=== PATIENT | male | born 1945 | race Caucasian/White ===

== ENCOUNTER → 2017-03-02 | Outpatient (CLI) | payer BC ==
[~2017-03-02] MED LIST: ASPI-496 PO; ATOR40TA78 PO; CARV12.543 PO; FENTANYL PF 100 MCG/2ML ONE; FURO40TA6 PO; IRBE300T16 PO; METF500T4 PO; MIDAZOLAM 1 MG/ML, 5ML ONE; POTA2VIA5 PO; TAMS0.4C2 PO
== END | disposition home or self-care (01) ==
LOC: RAD 06:55
PROVIDERS: ATTEND Family Medicine
DX: Z02.9 Encounter for administrative examinations, unspecified (principal)
CPT/HCPCS: J2250; J3010

== ENCOUNTER 2017-04-09 17:33 | Emergency (ER) | payer BC, MEDICARE ==
[~2017-04-09] VITALS: Ht 182.9 cm; Wt 190.9 kg
[~2017-04-09 17:33] MED LIST changes: -FENTANYL PF 100 MCG/2ML ONE; -MIDAZOLAM 1 MG/ML, 5ML ONE
[2017-04-09] MEDS ORDERED: SODIUM CHLORIDE FLUSH 10ML SYR IVF ONE (18:00)
[2017-04-09 18:24] LABS: BLOOD UREA NITROGEN 20 mg/dL (7-18)
[2017-04-09 20:27] VITALS: BP 100/52
== END 2017-04-09 20:30 | disposition home or self-care (01) ==
LOC: ED 18:08
DX: I95.2 Hypotension due to drugs (principal); R55 Syncope and collapse; I25.2 Old myocardial infarction; E66.9 Obesity, unspecified; E11.9 Type 2 diabetes mellitus without complications; E78.5 Hyperlipidemia, unspecified; I11.9 Hypertensive heart disease without heart failure; Z90.49 Acquired absence of other specified parts of digestive tract
CPT/HCPCS: 36415; 71010; 80048; 82040; 85025; 93005

== ENCOUNTER → 2020-03-24 | Outpatient (CLI) | payer BC ==
[~2020-03-24] MED LIST changes: -IRBE300T16 PO; +IRBE300T8 PO; +METF500T17 PO; -METF500T4 PO
== END | disposition home or self-care (01) ==
LOC: RAD 13:21
PROVIDERS: ATTEND Physician Assistant
DX: M79.605 Pain in left leg (principal)

== ENCOUNTER 2020-09-24 16:54 | Inpatient (IN) | payer MEDICARE, BC ==
[~2020-09-24] VITALS: Ht 182.9 cm; Wt 206.5 kg
[2020-09-24] MEDS ORDERED: FUROSEMIDE 40 MG/4 ML IV ONE (18:00)
[2020-09-24] MEDS ORDERED: SODIUM CHLORIDE FLUSH 10ML SYR IVF ONE (18:00)
[2020-09-24] MEDS ORDERED: FUROSEMIDE 20 MG/2 ML ONE (18:09)
[2020-09-24 18:37] LABS: BASOPHILS % (AUTO) 1 % (0-1); EOSINOPHILS % (AUTO) 6 % (1-7); LYMPHOCYTES % (AUTO) 9 % (22-44); MEAN CORPUSCULAR HEMOGLOBIN 29.3 pg (27.5-34.5); MEAN CORPUSCULAR HGB CONC 31.5 g/dL (33.2-36.2); MEAN PLATELET VOLUME 8.4 fL (7.4-10.4); MONOCYTES % (AUTO) 12 % (2-9); NEUTROPHILS % (AUTO) 72 % (42-75); PLATELET COUNT 148 x10^3/uL (130-400); RED BLOOD COUNT 3.88 x10^6/uL (4.38-5.82); RED CELL DISTRIBUTION WIDTH 18.7 % (9.4-14.8)
[2020-09-24 18:41] LABS: MD NO
[2020-09-24 18:44] LABS: ALBUMIN 2.8 g/dL (3.4-5.0); ANION GAP 1 mmol/L (5-15); CALCIUM 8.9 mg/dL (8.5-10.1); CHLORIDE 107 mmol/L (98-107)
--- NOTE | 2020-09-24 18:45 | NUR ---
PADS PLACED UNDER PT FOR INCONTINENCE. PT UNABLE TO VOID IN URINAL. UNABLE TO PLACE CONDOM CATH.
[2020-09-24 18:50] LABS: ALANINE AMINOTRANSFERASE 24 U/L (12-78); ALKALINE PHOSPHATASE 112 U/L (45-117); BILIRUBIN,TOTAL 1.6 mg/dL (0.2-1.0); CREATININE 1.18 mg/dL (0.7-1.3); TOTAL PROTEIN 6.8 g/dL (6.4-8.2); TROPONIN I 0.031 ng/mL (0.000-0.045)
--- NOTE | 2020-09-24 20:15 | NUR ---
HOSPITAL BED REQUESTED.
[2020-09-24] MEDS ORDERED: METHOCARBAMOL 500 MG TABLET PO PRN (20:30)
[2020-09-24] MEDS ORDERED: ENALAPRILAT 1.25 MG/ML, 2ML IVPush PRN (20:30)
[2020-09-24] MEDS ORDERED: morphine SULFATE 10 MG/ML, 1ML IVPush PRN (20:30)
[2020-09-24] MEDS ORDERED: TEMAZEPAM 15 MG CAPSULE PO PRN (20:30)
[2020-09-24] MEDS ORDERED: GUAIFENESIN/DM 200-20MG, 10ML UDC PO PRN (20:30)
[2020-09-24] MEDS ORDERED: TAMSULOSIN 0.4 MG CAP.ER.24H PO ONE (20:30)
[2020-09-24] MEDS ORDERED: DOCUSATE 100 MG CAPSULE PO PRN (20:30)
[2020-09-24] MEDS ORDERED: ONDANSETRON 2MG/ML, 2ML IVPush PRN (20:30)
[2020-09-24] MEDS ORDERED: ACETAMINOPHEN 325 MG TABLET PO PRN (20:30)
--- NOTE | 2020-09-24 20:57 | NUR ---
PADS UNDER PT REPLACED. UNABLE TO MEASURE URINE OUTPUT BUT PADS ARE QUITE FULL. [facility] PERFORMED.
[2020-09-24] MEDS: ATORVASTATIN 10 MG TABLET PO SCH (21:00)
--- NOTE | 2020-09-24 21:30 | NUR ---
report of pt from max garcia and assuming care at this time. pt medicated per dec. pt placed into gown and moved to hospital bed and placed back on monitors at this time. pt vss. pt has call light within reach.
[2020-09-24] MEDS ORDERED: ENOXAPARIN 40 MG/0.4 ML ONE (21:34)
[2020-09-24] MEDS ORDERED: TAMSULOSIN 0.4 MG CAP.ER.24H ONE (21:34)
[2020-09-24] MEDS ORDERED: FUROSEMIDE 40 MG/4 ML ONE (21:35)
[2020-09-24] MEDS ORDERED: FAMOTIDINE 20 MG TABLET ONE (21:35)
[2020-09-24] MEDS ORDERED: ATORVASTATIN 20 MG TABLET ONE (21:35)
[2020-09-24] MEDS: FAMOTIDINE 20 MG TABLET PO SCH (21:40)
[2020-09-24] MEDS: ENOXAPARIN 40 MG/0.4 ML SQ SCH (21:41)
[2020-09-24] MEDS: FUROSEMIDE 40 MG/4 ML IV SCH (21:42)
--- NOTE | 2020-09-25 00:37 | NUR ---
PT ASLEEP IN HOSPITAL BED AT THIS TIME WITH NADN. PT IS ON VS AND CARDIAC MONITORS WITH STABLE VS. PT HAS CALL LIGHT WITHIN REACH.
[2020-09-25 05:33] LABS: BASOPHILS % (AUTO) 1 % (0-1); EOSINOPHILS % (AUTO) 8 % (1-7); LYMPHOCYTES % (AUTO) 13 % (22-44); MEAN CORPUSCULAR HEMOGLOBIN 29.7 pg (27.5-34.5); MEAN CORPUSCULAR HGB CONC 31.7 g/dL (33.2-36.2); MEAN PLATELET VOLUME 8.1 fL (7.4-10.4); MONOCYTES % (AUTO) 14 % (2-9); NEUTROPHILS % (AUTO) 64 % (42-75); PLATELET COUNT 145 x10^3/uL (130-400); RED BLOOD COUNT 3.91 x10^6/uL (4.38-5.82); RED CELL DISTRIBUTION WIDTH 18.5 % (9.4-14.8)
[2020-09-25 05:40] LABS: MD NO
[2020-09-25 05:56] LABS: CREATININE 1.07 mg/dL (0.7-1.3)
[2020-09-25] MEDS ORDERED: CARVEDILOL 3.125 MG TABLET PO SCH (06:00)
[2020-09-25 06:02] LABS: ANION GAP 4 mmol/L (5-15); CHLORIDE 108 mmol/L (98-107)
--- NOTE | 2020-09-25 06:56 | NUR ---
REPORT FROM GABRIEL WYNNE.
[2020-09-25] MEDS ORDERED: ASPIRIN 81 MG TABLET EC ONE (07:09)
[2020-09-25] MEDS ORDERED: CARVEDILOL 3.125 MG TABLET ONE (07:10)
[2020-09-25] MEDS: ASPIRIN 81 MG TABLET EC PO SCH (07:14)
--- NOTE | 2020-09-25 07:30 | NUR ---
PT SITTING UP IN BED LIGHTLY DROWSING DENIES SOB/CP, GIVEN PHONE/CALL KRAFT. NSR ON MONITOR, LUNGS DIM BILAT. A&OX4 GSC 15.
[2020-09-25] MEDS: CYANOCOBALAMIN 1,000 MCG TABLET PO SCH (08:22)
[2020-09-25] MEDS: CHOLECALCIFEROL 1,000 UNIT TABLET PO SCH (08:22)
[2020-09-25] MEDS: SPIRONOLACTONE 25 MG TABLET PO SCH (08:22)
[2020-09-25] MEDS: metFORMIN XR 500 MG TAB.ER.24H PO SCH (08:23)
[2020-09-25] MEDS: IRBESARTAN 300 MG TABLET PO SCH ×2 (08:23→09:00)
[2020-09-25] MEDS ORDERED: FUROSEMIDE 40 MG/4 ML ONE ×2 (08:29→15:40)
[2020-09-25] MEDS ORDERED: FAMOTIDINE 20 MG TABLET ONE (08:29)
[2020-09-25] MEDS: FAMOTIDINE 20 MG TABLET PO SCH ×2 (08:31→21:00)
[2020-09-25] MEDS: FUROSEMIDE 40 MG/4 ML IV SCH ×3 (08:31→22:38)
--- NOTE | 2020-09-25 08:35 | NUR ---
given breakfast/daily meds. no needs. call jauregui. as
--- NOTE | 2020-09-25 09:56 | NUR ---
PT RESTING IN BED NO NEEDS, ABESARTAN HELD BC BP WNL AND PT RECEIVING IV LASIX. VSS.
--- NOTE | 2020-09-25 11:03 | NUR ---
HOSPITALIST IN ROOM FOR EVAL.
--- NOTE | 2020-09-25 11:25 | NUR ---
PT CALM IN BED, NO REQUESTS AT THIS TIME. VITALS ASSESSED. NAD
--- NOTE | 2020-09-25 12:23 | NUR ---
PT EATING LUNCH VSS NO NEEDS AT THIS TIME.
--- NOTE | 2020-09-25 13:29 | NUR ---
PASSENGER BARGE MASTER IN ROOM TO MOBILIZE PT, SHEETS CHANGED.
--- NOTE | 2020-09-25 15:09 | NUR ---
RESTING IN BED NAD VSS.
--- NOTE | 2020-09-25 16:05 | NUR ---
piv replaced, lasix per dec, pt on fresh sheets, at bedside, turned o2 down to [id number], education provided to visitor. as
--- NOTE | 2020-09-25 16:08 | NUR ---
attempt x1 to call report. as
--- NOTE | 2020-09-25 16:26 | NUR ---
report to connie santana. as
[2020-09-25 17:27] VITALS: BP 101/65
[2020-09-25 17:58] VITALS: BP 90/57
[2020-09-25] MEDS ORDERED: POTA8CAP20 PO (18:06)
[2020-09-25] MEDS ORDERED: OMEP20CA20 PO (18:06)
[2020-09-25] MEDS ORDERED: CHOL10003 PO (18:06)
[2020-09-25] MEDS ORDERED: CYAN250013 PO (18:06)
[2020-09-25] MEDS ORDERED: SPIR25TA5 PO (18:06)
[2020-09-25] MEDS ORDERED: CARV3.122 PO (18:06)
[2020-09-25 18:17] VITALS: BP 95/58
[2020-09-25] MEDS: CARVEDILOL 3.125 MG TABLET PO SCH (18:28)
[2020-09-25] MEDS: ENOXAPARIN 40 MG/0.4 ML SQ SCH (20:30)
[2020-09-25 20:42] VITALS: BP 96/55
[2020-09-25] MEDS ORDERED: FAMOTIDINE 40 MG TABLET ONE (22:34)
[2020-09-25] MEDS: ATORVASTATIN 10 MG TABLET PO SCH (22:39)
[2020-09-25 23:46] VITALS: BP 110/71
[2020-09-26 05:47] VITALS: BP 92/59
[2020-09-26] MEDS: ASPIRIN 81 MG TABLET EC PO SCH (05:51)
[2020-09-26] MEDS: CARVEDILOL 3.125 MG TABLET PO SCH ×2 (05:52→17:11)
[2020-09-26 06:12] LABS: BASOPHILS % (AUTO) 1 % (0-1); EOSINOPHILS % (AUTO) 7 % (1-7); LYMPHOCYTES % (AUTO) 10 % (22-44); MD NO; MEAN CORPUSCULAR HEMOGLOBIN 29.7 pg (27.5-34.5); MEAN CORPUSCULAR HGB CONC 31.2 g/dL (33.2-36.2); MEAN PLATELET VOLUME 8.3 fL (7.4-10.4); MONOCYTES % (AUTO) 12 % (2-9); NEUTROPHILS % (AUTO) 70 % (42-75); PLATELET COUNT 144 x10^3/uL (130-400); RED BLOOD COUNT 3.82 x10^6/uL (4.38-5.82); RED CELL DISTRIBUTION WIDTH 18.1 % (9.4-14.8)
[2020-09-26 06:25] LABS: CALCIUM 9.1 mg/dL (8.5-10.1); CREATININE 1.03 mg/dL (0.7-1.3)
[2020-09-26 06:36] LABS: ANION GAP 6 mmol/L (5-15); CHLORIDE 106 mmol/L (98-107)
[2020-09-26 08:35] VITALS: BP 110/68
[2020-09-26] MEDS ORDERED: FAMOTIDINE 40 MG TABLET ONE ×2 (08:36→20:21)
[2020-09-26] MEDS: FUROSEMIDE 40 MG/4 ML IV SCH ×3 (08:40→20:37)
[2020-09-26] MEDS: IRBESARTAN 300 MG TABLET PO SCH (08:40)
[2020-09-26] MEDS: metFORMIN XR 500 MG TAB.ER.24H PO SCH (08:41)
[2020-09-26] MEDS: SPIRONOLACTONE 25 MG TABLET PO SCH (08:41)
[2020-09-26] MEDS: CHOLECALCIFEROL 1,000 UNIT TABLET PO SCH (08:41)
[2020-09-26] MEDS: CYANOCOBALAMIN 1,000 MCG TABLET PO SCH (08:41)
[2020-09-26] MEDS: FAMOTIDINE 20 MG TABLET PO SCH ×2 (08:42→20:37)
[2020-09-26 14:19] VITALS: BP 121/63
[2020-09-26 19:54] VITALS: BP 110/67
[2020-09-26] MEDS: ATORVASTATIN 10 MG TABLET PO SCH (20:36)
[2020-09-26] MEDS ORDERED: ENOXAPARIN 30 MG/0.3 ML SQ SCH (21:00)
[2020-09-27 01:39] VITALS: BP 103/61
[2020-09-27] MEDS: CARVEDILOL 3.125 MG TABLET PO SCH ×2 (05:19→17:33)
[2020-09-27] MEDS: ASPIRIN 81 MG TABLET EC PO SCH (05:19)
[2020-09-27 05:41] LABS: BASOPHILS % (AUTO) 1 % (0-1); EOSINOPHILS % (AUTO) 8 % (1-7); LYMPHOCYTES % (AUTO) 10 % (22-44); MEAN CORPUSCULAR HEMOGLOBIN 29.6 pg (27.5-34.5); MEAN CORPUSCULAR HGB CONC 31.3 g/dL (33.2-36.2); MEAN PLATELET VOLUME 8.4 fL (7.4-10.4); MONOCYTES % (AUTO) 15 % (2-9); NEUTROPHILS % (AUTO) 66 % (42-75); PLATELET COUNT 155 x10^3/uL (130-400); RED BLOOD COUNT 3.77 x10^6/uL (4.38-5.82); RED CELL DISTRIBUTION WIDTH 18.4 % (9.4-14.8)
[2020-09-27 05:43] LABS: MD NO
[2020-09-27 05:51] LABS: ANION GAP 3 mmol/L (5-15); CALCIUM 8.9 mg/dL (8.5-10.1); CHLORIDE 103 mmol/L (98-107)
[2020-09-27 05:52] LABS: CREATININE 1.75 mg/dL (0.7-1.3)
[2020-09-27 07:30] VITALS: BP 104/61
[2020-09-27] MEDS ORDERED: FAMOTIDINE 40 MG TABLET ONE ×2 (08:27→20:34)
[2020-09-27] MEDS: ENOXAPARIN 40 MG/0.4 ML SQ SCH ×2 (08:31→20:37)
[2020-09-27] MEDS: IRBESARTAN 300 MG TABLET PO SCH (08:32)
[2020-09-27] MEDS: FAMOTIDINE 20 MG TABLET PO SCH ×2 (08:32→20:38)
[2020-09-27] MEDS: CHOLECALCIFEROL 1,000 UNIT TABLET PO SCH (08:32)
[2020-09-27] MEDS: metFORMIN XR 500 MG TAB.ER.24H PO SCH (08:32)
[2020-09-27] MEDS: SPIRONOLACTONE 25 MG TABLET PO SCH (08:33)
[2020-09-27] MEDS: CYANOCOBALAMIN 1,000 MCG TABLET PO SCH (08:33)
[2020-09-27 13:48] VITALS: BP 103/62
[2020-09-27 17:34] VITALS: BP 112/62
[2020-09-27] MEDS: ATORVASTATIN 10 MG TABLET PO SCH (20:37)
[2020-09-27 20:43] VITALS: BP 97/59
[2020-09-28 01:22] VITALS: BP 94/58
[2020-09-28 05:09] VITALS: BP 108/63
[2020-09-28] MEDS: CARVEDILOL 3.125 MG TABLET PO SCH ×2 (05:10→17:40)
[2020-09-28] MEDS: ASPIRIN 81 MG TABLET EC PO SCH (05:10)
[2020-09-28 06:27] LABS: ALANINE AMINOTRANSFERASE 22 U/L (12-78); ALBUMIN 2.7 g/dL (3.4-5.0); ANION GAP 3 mmol/L (5-15); CALCIUM 9.4 mg/dL (8.5-10.1); CHLORIDE 105 mmol/L (98-107); CREATININE 2.12 mg/dL (0.7-1.3)
[2020-09-28 06:29] LABS: ALKALINE PHOSPHATASE 94 U/L (45-117); BILIRUBIN,TOTAL 1.1 mg/dL (0.2-1.0); TOTAL PROTEIN 6.8 g/dL (6.4-8.2)
[2020-09-28 07:21] VITALS: BP 102/65
[2020-09-28] MEDS: CHOLECALCIFEROL 1,000 UNIT TABLET PO SCH (08:38)
[2020-09-28] MEDS: IRBESARTAN 300 MG TABLET PO SCH (08:39)
[2020-09-28] MEDS: metFORMIN XR 500 MG TAB.ER.24H PO SCH (08:39)
[2020-09-28] MEDS: SPIRONOLACTONE 25 MG TABLET PO SCH (08:39)
[2020-09-28] MEDS: ENOXAPARIN 40 MG/0.4 ML SQ SCH (08:42)
[2020-09-28] MEDS: CYANOCOBALAMIN 1,000 MCG TABLET PO SCH (08:43)
[2020-09-28 09:19] LABS: ANION GAP 4 mmol/L (5-15); CHLORIDE 105 mmol/L (98-107); CREATININE 2.12 mg/dL (0.7-1.3)
[2020-09-28] MEDS ORDERED: MAGNESIUM SULFATE PMX 2GM/50ML 50 ML IV ONE (11:00)
[2020-09-28 11:33] LABS: C-REACTIVE PROTEIN, QUANT 0.57 mg/dL (0.02-0.49)
[2020-09-28 12:33] VITALS: BP 97/59
[2020-09-28 16:32] VITALS: BP 106/67
[2020-09-28 19:44] VITALS: BP 115/71
[2020-09-28] MEDS: HEPARIN 5,000 UNITS/ML, 1ML SQ SCH (20:49)
[2020-09-28] MEDS: FAMOTIDINE 20 MG TABLET PO SCH (20:49)
[2020-09-28] MEDS: ATORVASTATIN 10 MG TABLET PO SCH (20:49)
[2020-09-29 01:33] VITALS: BP 113/63
[2020-09-29] MEDS: ASPIRIN 81 MG TABLET EC PO SCH (05:18)
[2020-09-29 05:19] VITALS: BP 101/72
[2020-09-29] MEDS: HEPARIN 5,000 UNITS/ML, 1ML SQ SCH ×3 (05:19→21:17)
[2020-09-29] MEDS: CARVEDILOL 3.125 MG TABLET PO SCH ×2 (05:19→17:19)
[2020-09-29 05:44] LABS: BASOPHILS % (AUTO) 1 % (0-1); EOSINOPHILS % (AUTO) 9 % (1-7); LYMPHOCYTES % (AUTO) 12 % (22-44); MEAN CORPUSCULAR HEMOGLOBIN 29.8 pg (27.5-34.5); MEAN CORPUSCULAR HGB CONC 31.7 g/dL (33.2-36.2); MEAN PLATELET VOLUME 8.6 fL (7.4-10.4); MONOCYTES % (AUTO) 15 % (2-9); NEUTROPHILS % (AUTO) 62 % (42-75); PLATELET COUNT 129 x10^3/uL (130-400); RED BLOOD COUNT 3.89 x10^6/uL (4.38-5.82); RED CELL DISTRIBUTION WIDTH 18.1 % (9.4-14.8)
[2020-09-29 05:45] LABS: MD NO
[2020-09-29 05:55] LABS: ANION GAP 3 mmol/L (5-15); CALCIUM 9.2 mg/dL (8.5-10.1); CHLORIDE 105 mmol/L (98-107); CREATININE 1.64 mg/dL (0.7-1.3)
[2020-09-29 08:16] VITALS: BP 106/67
[2020-09-29] MEDS: metFORMIN XR 500 MG TAB.ER.24H PO SCH (08:21)
[2020-09-29] MEDS: IRBESARTAN 300 MG TABLET PO SCH (08:21)
[2020-09-29] MEDS: CHOLECALCIFEROL 1,000 UNIT TABLET PO SCH (08:22)
[2020-09-29] MEDS: SPIRONOLACTONE 25 MG TABLET PO SCH (08:22)
[2020-09-29] MEDS: CYANOCOBALAMIN 1,000 MCG TABLET PO SCH (08:22)
[2020-09-29] MEDS ORDERED: FUROSEMIDE 40 MG/4 ML IV SCH (11:00)
[2020-09-29] MEDS: DEXAMETHASONE 4 MG/ML, 1ML IVPush SCH (12:45)
[2020-09-29 13:18] VITALS: BP 127/75
[2020-09-29 19:26] VITALS: BP 133/77
[2020-09-29] MEDS: FAMOTIDINE 20 MG TABLET PO SCH (21:17)
[2020-09-29] MEDS: ATORVASTATIN 10 MG TABLET PO SCH (21:17)
[2020-09-30 01:15] VITALS: BP 104/62
[2020-09-30 05:37] LABS: CALCIUM 9.6 mg/dL (8.5-10.1); CHLORIDE 105 mmol/L (98-107); CREATININE 1.25 mg/dL (0.7-1.3)
[2020-09-30 05:39] LABS: ANION GAP < 1 mmol/L (5-15)
[2020-09-30] MEDS: HEPARIN 5,000 UNITS/ML, 1ML SQ SCH ×3 (05:47→21:53)
[2020-09-30] MEDS: ASPIRIN 81 MG TABLET EC PO SCH (05:49)
[2020-09-30] MEDS: CARVEDILOL 3.125 MG TABLET PO SCH ×2 (05:49→17:02)
[2020-09-30 05:50] VITALS: BP 118/67
[2020-09-30 07:30] VITALS: BP 107/46
[2020-09-30] MEDS: FUROSEMIDE 40 MG/4 ML IV SCH ×2 (08:35→20:22)
[2020-09-30] MEDS: CHOLECALCIFEROL 1,000 UNIT TABLET PO SCH (08:35)
[2020-09-30] MEDS: DEXAMETHASONE 4 MG/ML, 1ML IVPush SCH (08:35)
[2020-09-30] MEDS: CYANOCOBALAMIN 1,000 MCG TABLET PO SCH (08:35)
[2020-09-30] MEDS: IRBESARTAN 300 MG TABLET PO SCH (08:35)
[2020-09-30] MEDS: metFORMIN XR 500 MG TAB.ER.24H PO SCH (08:35)
[2020-09-30] MEDS ORDERED: MAGNESIUM SULFATE PMX 4GM/100M 100 ML IVPB ONE (13:30)
[2020-09-30 14:55] VITALS: BP 121/76
[2020-09-30 19:27] VITALS: BP 114/67
[2020-09-30] MEDS: ATORVASTATIN 10 MG TABLET PO SCH (19:57)
[2020-09-30] MEDS: FAMOTIDINE 20 MG TABLET PO SCH (19:57)
[2020-10-01 01:59] VITALS: BP 120/67
[2020-10-01] MEDS: ASPIRIN 81 MG TABLET EC PO SCH (06:22)
[2020-10-01] MEDS: CARVEDILOL 3.125 MG TABLET PO SCH ×2 (06:22→16:45)
[2020-10-01] MEDS: HEPARIN 5,000 UNITS/ML, 1ML SQ SCH ×3 (06:22→21:04)
[2020-10-01 06:23] VITALS: BP 101/61
[2020-10-01 07:14] LABS: BASOPHILS % (AUTO) 0 % (0-1); EOSINOPHILS % (AUTO) 0 % (1-7); LYMPHOCYTES % (AUTO) 6 % (22-44); MEAN CORPUSCULAR HEMOGLOBIN 29.6 pg (27.5-34.5); MEAN CORPUSCULAR HGB CONC 31.5 g/dL (33.2-36.2); MEAN PLATELET VOLUME 9.1 fL (7.4-10.4); MONOCYTES % (AUTO) 10 % (2-9); NEUTROPHILS % (AUTO) 84 % (42-75); PLATELET COUNT 140 x10^3/uL (130-400); RED BLOOD COUNT 3.97 x10^6/uL (4.38-5.82); RED CELL DISTRIBUTION WIDTH 18.6 % (9.4-14.8)
[2020-10-01 07:22] LABS: CALCIUM 9.8 mg/dL (8.5-10.1); CHLORIDE 101 mmol/L (98-107)
[2020-10-01 07:27] LABS: ANION GAP 3 mmol/L (5-15); C-REACTIVE PROTEIN, QUANT 0.46 mg/dL (0.02-0.49); CREATININE 1.36 mg/dL (0.7-1.3); MD NO
[2020-10-01] MEDS: FUROSEMIDE 40 MG/4 ML IV SCH ×2 (09:26→21:04)
[2020-10-01] MEDS: CYANOCOBALAMIN 1,000 MCG TABLET PO SCH (09:27)
[2020-10-01] MEDS: CHOLECALCIFEROL 1,000 UNIT TABLET PO SCH (09:27)
[2020-10-01] MEDS: IRBESARTAN 300 MG TABLET PO SCH (09:27)
[2020-10-01] MEDS: metFORMIN XR 500 MG TAB.ER.24H PO SCH (09:27)
[2020-10-01] MEDS: DEXAMETHASONE 4 MG/ML, 1ML IVPush SCH (09:27)
[2020-10-01 13:54] VITALS: BP 115/65
[2020-10-01] MEDS ORDERED: METOLAZONE 5 MG TABLET PO ONE (16:30)
[2020-10-01 19:22] VITALS: BP 107/58
[2020-10-01] MEDS: FAMOTIDINE 20 MG TABLET PO SCH (21:00)
[2020-10-01] MEDS: ATORVASTATIN 10 MG TABLET PO SCH (21:04)
[2020-10-02 01:56] VITALS: BP 108/61
[2020-10-02] MEDS: ASPIRIN 81 MG TABLET EC PO SCH (05:14)
[2020-10-02] MEDS: CARVEDILOL 3.125 MG TABLET PO SCH ×2 (05:14→17:19)
[2020-10-02] MEDS: HEPARIN 5,000 UNITS/ML, 1ML SQ SCH ×3 (05:15→20:05)
[2020-10-02 08:13] VITALS: BP 102/58
[2020-10-02] MEDS: DEXAMETHASONE 4 MG/ML, 1ML IVPush SCH (08:19)
[2020-10-02] MEDS: FUROSEMIDE 40 MG/4 ML IV SCH ×2 (08:19→20:04)
[2020-10-02] MEDS: CHOLECALCIFEROL 1,000 UNIT TABLET PO SCH (08:20)
[2020-10-02] MEDS: CYANOCOBALAMIN 1,000 MCG TABLET PO SCH (08:20)
[2020-10-02] MEDS: FAMOTIDINE 20 MG TABLET PO SCH ×2 (08:20→20:14)
[2020-10-02] MEDS: IRBESARTAN 300 MG TABLET PO SCH (08:20)
[2020-10-02] MEDS: metFORMIN XR 500 MG TAB.ER.24H PO SCH (08:20)
[2020-10-02 08:59] LABS: ALBUMIN 2.8 g/dL (3.4-5.0); CALCIUM 9.7 mg/dL (8.5-10.1)
[2020-10-02] MEDS ORDERED: FUROSEMIDE 40 MG/4 ML IV SCH ×2 (09:00→16:00)
[2020-10-02 09:02] LABS: ALANINE AMINOTRANSFERASE 33 U/L (12-78); ALKALINE PHOSPHATASE 98 U/L (45-117); BILIRUBIN,TOTAL 1.4 mg/dL (0.2-1.0); TOTAL PROTEIN 6.9 g/dL (6.4-8.2)
[2020-10-02 09:14] LABS: CHLORIDE 99 mmol/L (98-107)
[2020-10-02 09:15] LABS: ANION GAP 2 mmol/L (5-15)
[2020-10-02 14:06] VITALS: BP 98/52
[2020-10-02 16:16] VITALS: BP 131/74
[2020-10-02] MEDS ORDERED: METOLAZONE 5 MG TABLET PO ONE (17:00)
[2020-10-02 18:30] VITALS: BP 119/69
[2020-10-02] MEDS: ATORVASTATIN 10 MG TABLET PO SCH (20:04)
[2020-10-03 00:15] VITALS: BP 117/66
[2020-10-03] MEDS: ASPIRIN 81 MG TABLET EC PO SCH (04:50)
[2020-10-03] MEDS: CARVEDILOL 3.125 MG TABLET PO SCH ×2 (04:50→17:28)
[2020-10-03] MEDS: HEPARIN 5,000 UNITS/ML, 1ML SQ SCH ×2 (04:52→13:07)
[2020-10-03 07:47] VITALS: BP 82/51
[2020-10-03] MEDS: FUROSEMIDE 40 MG/4 ML IV SCH (07:50)
[2020-10-03] MEDS: metFORMIN XR 500 MG TAB.ER.24H PO SCH (08:05)
[2020-10-03] MEDS: FAMOTIDINE 20 MG TABLET PO SCH (08:05)
[2020-10-03] MEDS: CHOLECALCIFEROL 1,000 UNIT TABLET PO SCH (08:05)
[2020-10-03] MEDS: CYANOCOBALAMIN 1,000 MCG TABLET PO SCH (08:06)
[2020-10-03 08:32] VITALS: BP 103/61
[2020-10-03] MEDS: IRBESARTAN 300 MG TABLET PO SCH (08:32)
[2020-10-03 08:53] LABS: BASOPHILS % (AUTO) 0 % (0-1); EOSINOPHILS % (AUTO) 0 % (1-7); LYMPHOCYTES % (AUTO) 5 % (22-44); MEAN CORPUSCULAR HEMOGLOBIN 29.8 pg (27.5-34.5); MEAN CORPUSCULAR HGB CONC 31.8 g/dL (33.2-36.2); MEAN PLATELET VOLUME 9.2 fL (7.4-10.4); MONOCYTES % (AUTO) 11 % (2-9); NEUTROPHILS % (AUTO) 84 % (42-75); PLATELET COUNT 127 x10^3/uL (130-400); RED BLOOD COUNT 3.98 x10^6/uL (4.38-5.82); RED CELL DISTRIBUTION WIDTH 18.3 % (9.4-14.8)
[2020-10-03 08:59] LABS: ALANINE AMINOTRANSFERASE 36 U/L (12-78); ALBUMIN 2.7 g/dL (3.4-5.0); ANION GAP 4 mmol/L (5-15); CALCIUM 10.1 mg/dL (8.5-10.1); CHLORIDE 95 mmol/L (98-107)
[2020-10-03 09:02] LABS: ALKALINE PHOSPHATASE 101 U/L (45-117); BILIRUBIN,TOTAL 1.2 mg/dL (0.2-1.0); CREATININE 1.51 mg/dL (0.7-1.3); TOTAL PROTEIN 6.6 g/dL (6.4-8.2)
[2020-10-03 09:17] LABS: MD NO
[2020-10-03] MEDS ORDERED: CARV3.1212 PO (10:58)
[2020-10-03] MEDS ORDERED: FURO-92 PO (10:58)
[2020-10-03] MEDS ORDERED: METO2.5T PO (10:58)
[2020-10-03] MEDS ORDERED: CHOL10003 PO (10:58)
[2020-10-03] MEDS ORDERED: IRBE300T40 PO (10:58)
[2020-10-03] MEDS ORDERED: POTA8CAP20 PO (11:12)
[2020-10-03 12:37] VITALS: BP 90/49
[2020-10-03 17:28] VITALS: BP 103/53
[2020-10-03] MEDS ORDERED: FUROSEMIDE 40 MG TABLET ONE (17:59)
[2020-10-03] MEDS ORDERED: FUROSEMIDE 10 MG/ML ORAL SOL PO ONE (18:00)
[2020-10-03] MEDS ORDERED: FUROSEMIDE 40 MG TABLET PO ONE (18:30)
[2020-10-03] MEDS ORDERED: FAMOTIDINE 20 MG TABLET PO SCH (21:00)
== END 2020-10-03 18:33 | disposition home health service (06) | DRG 291 ==
LOC: ED 20:05 → EDIP 20:12 → ED 20:20 → 5SO 09-25 16:44 → 4EST 09-28 15:29 → 4WST 10-01 23:06
PROVIDERS: ADMIT Internal Medicine; ATTEND Hospitalist
DX: I11.0 Hypertensive heart disease with heart failure (principal); J96.01 Acute respiratory failure with hypoxia; N17.0 Acute kidney failure with tubular necrosis; G93.41 Metabolic encephalopathy; Z68.44 Body mass index [BMI] 60.0-69.9, adult; Z20.828 Contact with and (suspected) exposure to other viral communicable diseases; D64.9 Anemia, unspecified; E11.65 Type 2 diabetes mellitus with hyperglycemia; E66.01 Morbid (severe) obesity due to excess calories; E78.5 Hyperlipidemia, unspecified; E87.5 Hyperkalemia; I25.10 Atherosclerotic heart disease of native coronary artery without angina pectoris; I25.2 Old myocardial infarction; I44.0 Atrioventricular block, first degree; N40.0 Benign prostatic hyperplasia without lower urinary tract symptoms; N50.89 Other specified disorders of the male genital organs; Z82.0 Family history of epilepsy and other diseases of the nervous system; Z85.828 Personal history of other malignant neoplasm of skin; Z87.891 Personal history of nicotine dependence; I50.33 Acute on chronic diastolic (congestive) heart failure
CPT/HCPCS: 36415; 71045; 76870; 80048; 80053; 82140; 83615; 83735; 83880; 84100; 84145; 84443; 84484; 85025; 85379; 86140; 93005; 93970; 99285; C8929; G0378; J1100; J1644; J1650; J1940; Q9957; J3475; U0003